=== PATIENT | female | born 1985 | race Caucasian/White ===

== ENCOUNTER 2017-03-06 10:48 | Day surgery (SDC) | payer BC ==
[~2017-03-06 10:48] MED LIST: Dexamethasone IV* 4 MG/ML 1 ML (4 MG) IV SLOW PU ONE; Famotidine IV* 10 MG/ML 2 ML (20 mg) IV ONE
[2017-03-06] MEDS ORDERED: Buffered Lidocaine 1% SYRIN* 5 ML/SYR SYRINGE ONE ×2 (11:12→11:26)
[2017-03-06] MEDS ORDERED: Dexamethasone IV* 4 MG/ML 1 ML (4 MG) ONE (11:12)
[2017-03-06] MEDS ORDERED: Famotidine IV* 10 MG/ML 2 ML (20 mg) ONE (11:12)
[2017-03-06] MEDS ORDERED: Bacitracin OINTMENT* 1 TUBE ONE (12:39)
[2017-03-06] MEDS ORDERED: Lidocaine 1% MPF wEPI 200,000* 30 ML SDV ONE (12:39)
[2017-03-06] MEDS ORDERED: Methylene Blue 1% (ANTIDOTE)* 10 MG/ML 1 ML SDV VIAL IVPB ONE (12:52)
[2017-03-06] MEDS ORDERED: fentaNYL* 50 MCG/ML 2 ML VIAL (100 MCG VIAL) ONE ×3 (13:01→15:18)
[2017-03-06] MEDS ORDERED: Midazolam* 1 MG/ML 2 ML VIAL (2 MG) ONE (13:01)
[2017-03-06] MEDS ORDERED: Lidocaine 2% PF * 5 ML VIAL ONE (13:02)
[2017-03-06] MEDS ORDERED: Propofol* 10 MG/ML 20 ML BTL IV PUSH ONE (13:02)
[2017-03-06] MEDS ORDERED: Succinylcholine* 20 MG/ML 10 ML VIAL ONE (13:10)
[2017-03-06] MEDS ORDERED: EPHEDrine (Pressors)* 50 MG/ML VIAL ONE (13:32)
[2017-03-06] MEDS ORDERED: Ondansetron INJ* 2 MG/ML VIAL ONE (13:51)
[2017-03-06] MEDS ORDERED: HYDROcodone/ACETAMIN 5-325 MG* 1 TAB PO PRN (13:53)
[2017-03-06] MEDS ORDERED: PROCHLORPERAZINE INJ 5 MG/ML 2 ML VIAL IV PRN (13:53)
[2017-03-06] MEDS ORDERED: oxyCODONE/Acetamin 5/325 MG* TAB PO PRN (13:53)
[2017-03-06] MEDS ORDERED: Clindamycin 900 MG IVPREMIX(* 900 MG/50 ML SDV IV ONE (14:12)
[2017-03-06] MEDS: fentaNYL* 50 MCG/ML 2 ML VIAL (100 MCG VIAL) IV PRN ×2 (15:18→15:39)
[2017-03-06] MEDS ORDERED: oxyCODONE/Acetamin 5/325 MG* TAB ONE (15:47)
[2017-03-06] MEDS ORDERED: PROCHLORPERAZINE INJ 5 MG/ML 2 ML VIAL ONE (16:22)
[2017-03-06 17:46] VITALS: BP 113/72
--- NOTE | 2017-03-07 04:11 | OP ---
DATE OF OPERATION: 03/06/17 [facility] DATE OF : 89 SURGEON: Favian Allen MD UNIT TENDER: Garrett Hayes MD ANESTHESIOLOGIST: Leander Mcdowell MD PRE-OP DIAGNOSIS: Left submandibular triangle mass. POST-OP DIAGNOSIS: Left submandibular triangle mass. OPERATIVE PROCEDURE: Excision of left submandibular triangle mass including lymph nodes and submandibular gland. ESTIMATED BLOOD LOSS: Less than 50 cc. BRIEF HISTORY: This is a pleasant 32-year-old female presenting with a slowly enlarging mass in the floor of the mouth. 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 DESCRIPTION OF PROCEDURE: The patient was taken to the operating room and general anesthetic was given. The patient was intubated. NIM monitor for facial monitoring was then applied. The left neck was then prepped and draped in the usual fashion. A curvilinear incision was made. Subplatysmal flaps were created. The submandibular gland fascia was identified and careful incision was made into the fascia, elevation of the fascia preserving the marginal mandibular nerve protecting with Vicryl sutures. We then started to dissect away towards the gland following the digastric anteriorly and posteriorly circumferentially removing the soft tissue attachments including the facial vein. The artery was preserved without dissecting it. Once the mylohyoid was identified, the lingual nerve was identified, the duct and sublingual glands were identified and clipped and removed. It was obvious that this was not part of the sublingual structures, but free of it and independent of the submandibular glands and sublingual structures. We therefore put our finger into the mouth and pushed at the mass and kept dividing it away from the lingual nerve attachments and then carefully circumferentially resecting out the tumor in the floor of the mouth. Once the mass was removed, the wound was copiously irrigated. I examined that the lingual nerve was intact throughout its course. Hypoglossal structure was intact throughout its course. TLS was inserted into the defect. The wound was closed in 2 layers. Small dressing was applied. The patient was sent to recovery room in stable condition. Instrument and sponge count correct. Blood loss minimal. [id number] #: [id number] [facility]
== END 2017-03-06 17:59 | disposition home or self-care (01) ==
LOC: OR 10:48
PROVIDERS: ATTEND Otolaryngology
DX: C08.0 Malignant neoplasm of submandibular gland (principal); I42.9 Cardiomyopathy, unspecified; R00.2 Palpitations
CPT/HCPCS: 88304; 88307; 88312; 88321; 88341; 88342; A9270-GY; J0330; J0780; J1100; J2001; J2250; J2405; J2704; J3010